=== PATIENT | male | born 1950 | race Caucasian/White ===

== ENCOUNTER 2020-02-26 09:25 | Inpatient (IN) | payer OTHER ==
[~2020-02-26] VITALS: Ht 342.9 cm; Wt 81.6 kg
[2020-02-26] MEDS ORDERED: SODIUM CHLORIDE 0.9% 1,000 ML IV ONE (09:55)
[2020-02-26] MEDS ORDERED: MECLIZINE 25MG TABLET PO ONE ×2 (10:00→12:30)
[2020-02-26 10:37] LABS: BASOPHILS % 0.2 % (0.0-2.0); EOSINOPHILS % 0.7 % (0.0-5.0); HEMATOCRIT. 40.3 % (42.0-52.0); HEMOGLOBIN. 13.6 g/dL (14.0-18.0); LYMPHOCYTES % 28.7 % (20.0-50.0); MEAN CORPUSCULAR HEMOGLOBIN 28.9 pg (28.0-32.0); MEAN CORPUSCULAR VOLUME 85.6 fL (80.0-94.0); MEAN PLATELET VOLUME 10.9 fl (7.4-10.4); MONOCYTES % 9.3 % (2.0-8.0); NEUTROPHILS % 61.1 % (40.0-76.0); PLATELET 120 x1000/uL (130-400); RED BLOOD CELL COUNT 4.71 mill/uL (4.7-6.1); RED CELL DISTRIBUTION WIDTH 13.2 % (11.6-14.6)
[2020-02-26 10:41] LABS: CHLORIDE 109 mEq/L (98-107)
[2020-02-26 11:42] LABS: CLARITY URINE CLEAR (CLEAR); COLOR URINE YELLOW (YELLOW); KETONES URINE TRACE (NEGATIVE); LEUKOCYTE ESTERASE URINE NEGATIVE (NEGATIVE); NITRITE URINE NEGATIVE (NEGATIVE); OCCULT BLOOD URINE NEGATIVE (NEGATIVE); PH URINE 8.5 (4.5-8.0); PROTEIN URINE NEGATIVE (NEGATIVE); SPECIFIC GRAVITY URINE 1.014 (1.005-1.030); UROBILINOGEN URINE 0.2 E.U./dL (0.2-1.0)
[2020-02-26] MEDS: POTASSIUM CHLORIDE 20MEQ TABLET SR PO ONE ×2 (12:21→12:30)
[2020-02-26] MEDS ORDERED: ONDANSETRON HCL 4MG/2ML INJ IV ONE (12:30)
[2020-02-26] MEDS ORDERED: ASPIRIN 325MG EC TABLET PO ONE (13:00)
[2020-02-26] MEDS ORDERED: ONDANSETRON HCL 4MG/2ML INJ IV PRN (14:00)
[2020-02-26] MEDS ORDERED: ACETAMINOPHEN 650MG/20.3ML UDC GT PRN (14:00)
[2020-02-26] MEDS ORDERED: GUAIFENESIN 200MG/10ML SUGAR FREE UDC PO PRN (14:00)
[2020-02-26] MEDS ORDERED: DIPHENHYDRAMINE 50MG/ML VIAL IV PRN (14:00)
[2020-02-26] MEDS ORDERED: DOCUSATE SODIUM 100MG CAPSULE PO PRN (14:00)
[2020-02-26] MEDS ORDERED: ACETAMINOPHEN 325MG TABLET PO PRN ×2 (14:00)
[2020-02-26] MEDS: SODIUM CHLORIDE 0.9% 1,000 ML IV SCH (14:34)
[2020-02-26] MEDS: ENOXAPARIN 40MG/0.4ML SYR SUBCUT SCH (16:28)
[2020-02-26] MEDS: AMLODIPINE 5MG TABLET PO SCH (21:12)
[2020-02-26 22:00] VITALS: BP_SYST 155; BP_SYST 177; BP_DIAS 79; BP_DIAS 85
[2020-02-26] MEDS ORDERED: MECLIZINE 12.5MG TABLET PO SCH (22:00)
[2020-02-26] MEDS: MECLIZINE 25MG TABLET PO SCH (23:12)
[2020-02-27] VITALS: BP 158/72
[2020-02-27 04:00] VITALS: BP 159/83
[2020-02-27] MEDS: SODIUM CHLORIDE 0.9% 1,000 ML IV SCH ×2 (04:20→17:53)
[2020-02-27] MEDS: MECLIZINE 25MG TABLET PO SCH ×3 (06:05→21:21)
[2020-02-27 06:12] LABS: BASOPHILS % 0.3 % (0.0-2.0); EOSINOPHILS % 0.7 % (0.0-5.0); HEMATOCRIT. 40.7 % (42.0-52.0); HEMOGLOBIN. 13.7 g/dL (14.0-18.0); LYMPHOCYTES % 25.4 % (20.0-50.0); MEAN CORPUSCULAR HEMOGLOBIN 28.9 pg (28.0-32.0); MEAN CORPUSCULAR VOLUME 85.7 fL (80.0-94.0); MEAN PLATELET VOLUME 11.1 fl (7.4-10.4); MONOCYTES % 11.5 % (2.0-8.0); NEUTROPHILS % 62.1 % (40.0-76.0); PLATELET 135 x1000/uL (130-400); RED BLOOD CELL COUNT 4.75 mill/uL (4.7-6.1); RED CELL DISTRIBUTION WIDTH 13.2 % (11.6-14.6)
[2020-02-27 06:22] LABS: CHLORIDE 108 mEq/L (98-107)
[2020-02-27 06:30] LABS: LDL CHOLESTEROL 137 mg/dL (5-100)
[2020-02-27 06:32] LABS: HDL CHOLESTEROL 44 mg/dL (40-59)
[2020-02-27 08:00] VITALS: BP_SYST 140; BP_SYST 152; BP_SYST 155; BP_DIAS 80; BP_DIAS 87; BP_DIAS 92
[2020-02-27] MEDS: AMLODIPINE 5MG TABLET PO SCH ×2 (09:00→21:22)
[2020-02-27] MEDS: ENOXAPARIN 40MG/0.4ML SYR SUBCUT SCH (09:01)
[2020-02-27 12:00] VITALS: BP 152/79
[2020-02-27 16:00] VITALS: BP 159/80
[2020-02-27] MEDS: ASPIRIN 81MG TABLET PO SCH ×2 (19:44→19:50)
[2020-02-27 20:00] VITALS: BP 166/82
[2020-02-27] MEDS ORDERED: ATORVASTATIN CALCIUM 10MG TABLET PO SCH (21:00)
[2020-02-28] VITALS: BP 142/80
[2020-02-28 04:00] VITALS: BP_SYST 135; BP_SYST 138; BP_SYST 140; BP_DIAS 72; BP_DIAS 75; BP_DIAS 84
[2020-02-28] MEDS: MECLIZINE 25MG TABLET PO SCH ×2 (05:46→13:43)
[2020-02-28] MEDS: SODIUM CHLORIDE 0.9% 1,000 ML IV SCH (06:50)
[2020-02-28 08:00] VITALS: BP_SYST 165; BP_SYST 167; BP_SYST 169; BP_DIAS 85; BP_DIAS 91; BP_DIAS 94
[2020-02-28] MEDS: ENOXAPARIN 40MG/0.4ML SYR SUBCUT SCH (08:18)
[2020-02-28] MEDS: AMLODIPINE 5MG TABLET PO SCH (08:19)
[2020-02-28] MEDS: ASPIRIN 81MG TABLET PO SCH (08:19)
[2020-02-28] MEDS ORDERED: AMLO10TA4 MT (11:20)
[2020-02-28] MEDS ORDERED: ATOR10TA PO (11:20)
[2020-02-28] MEDS ORDERED: ASPI-1160 PO (11:20)
[2020-02-28] MEDS ORDERED: CLONIDINE 0.1MG TABLET PO PRN (11:30)
[2020-02-28 12:00] VITALS: BP 140/78
[2020-02-28 15:17] LABS: BASOPHILS % 0.4 % (0.0-2.0); EOSINOPHILS % 1.6 % (0.0-5.0); HEMATOCRIT. 40.5 % (42.0-52.0); HEMOGLOBIN. 13.7 g/dL (14.0-18.0); LYMPHOCYTES % 33.4 % (20.0-50.0); MEAN CORPUSCULAR HEMOGLOBIN 29.1 pg (28.0-32.0); MEAN CORPUSCULAR VOLUME 86.3 fL (80.0-94.0); MEAN PLATELET VOLUME 10.8 fl (7.4-10.4); MONOCYTES % 10.8 % (2.0-8.0); NEUTROPHILS % 53.8 % (40.0-76.0); PLATELET 127 x1000/uL (130-400); RED BLOOD CELL COUNT 4.69 mill/uL (4.7-6.1); RED CELL DISTRIBUTION WIDTH 13.2 % (11.6-14.6)
[2020-02-28 15:20] LABS: CHLORIDE 106 mEq/L (98-107)
[2020-02-28 15:26] LABS: INR 1.1; PROTHROMBIN TIME 11.2 sec (9.6-11.0)
[2020-02-28 16:00] VITALS: BP 127/79
[2020-02-28 16:22] VITALS: BP 127/79
[2020-02-28] MEDS ORDERED: AMLODIPINE 5MG TABLET PO SCH ×2 (21:00)
== END 2020-02-28 17:22 | disposition home or self-care (01) | DRG 149 ==
LOC: ER 09:25 → 5WST 12:55 → EDBEDREQ 19:26 → ENRESERV 21:06
PROVIDERS: ADMIT Family Medicine; ATTEND Family Medicine
PROC: 4A00X4Z Measurement of Central Nervous Electrical Activity, External Approach (ICD-10-PCS; principal; 2020-02-28)
DX: H81.10 Benign paroxysmal vertigo, unspecified ear (principal); E78.5 Hyperlipidemia, unspecified; E87.6 Hypokalemia; I10 Essential (primary) hypertension; R73.9 Hyperglycemia, unspecified; Z86.73 Personal history of transient ischemic attack (TIA), and cerebral infarction without residual deficits; Z88.9 Allergy status to unspecified drugs, medicaments and biological substances; Z88.1 Allergy status to other antibiotic agents; Z88.0 Allergy status to penicillin; Z88.2 Allergy status to sulfonamides; Z88.8 Allergy status to other drugs, medicaments and biological substances
CPT/HCPCS: 36415; 70551; 71045; 80053; 80061; 81003; 83036; 84484; 85025; 93005; 93306; 93880; 95816; 96374; 97162; 97165; 99285; J1650; J2405; J7030; J8597